=== PATIENT | female | born 1980 | race Caucasian/White ===

== ENCOUNTER 2019-08-02 00:19 | Inpatient (IN) ==
[2019-08-02] MEDS ORDERED: DEXTROSE 5%-LACTATED RINGERS 1,000 ML IV PRN (00:41)
[2019-08-02] MEDS ORDERED: ONDANSETRON 4 MG TAB.RAPDIS PO PRN (00:41)
[2019-08-02] MEDS ORDERED: RINGER'S SOLUTION,LACTATED 1,000 ML IV ONE (00:41)
[2019-08-02] MEDS ORDERED: MISOPROSTOL 100 MCG TABLET VG PRN (00:41)
[2019-08-02] MEDS ORDERED: OXYTOCIN/DEXTROSE 5%-WATER 30 UNITS/500 ML BAG IV ONE ×2 (00:41→16:21)
[2019-08-02 01:38] LABS: Cocaine Ur Negative (NEGATIVE); Urine Barbiturate Negative (NEGATIVE); Urine Benzodiazepines Negative (NEGATIVE); Urine Opiates Negative (NEGATIVE); Urine PCP Negative (NEGATIVE); Urine THC Negative (NEGATIVE)
--- NOTE | 2019-08-02 09:42 | HP ---
Chief Complaint - Chief Complaint Date of Service: 08/02/19 Time of Service: 08:50 Chief Complaint: Medical induction of labor History of Present Illness: 38 yo at 39 2/7 weeks admitted to L&D for induction of labor due to advanced maternal age. This complicated by AMA and anemia. 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 Spontaneous Onset Date: Unknown Surgical History: Surgical History (Last Reviewed 08/02/19 @ 09:39 by Kwesi Erickson DO) H/O wisdom tooth extraction Onset Date: ~03/2019 Family History: Family History (Last Reviewed 08/02/19 @ 09:39 by Kwesi Erickson DO) Mother Fibrocystic breast disease Father Diabetes Social History: (Last Reviewed 08/02/19 @ 09:39 by Kwesi Erickson DO) Social History: adopted: No fci: No Marital status: household members: spouse, children number of children: 4 current occupational status: other current occupational exposures/hazards: No Highest education level completed: Bachelor's degree Sexually Active: Yes Service: No Tobacco: Smoking Status: Never smoker Alcohol: alcohol intake: never Substance Use: substance use type: does not use Dietary Habits: caffeine: Yes Type: coffee Exercise: frequency: does not exercise Heena/Mormonism: agree to transfusion: Yes Review Of Systems (GEN) - Review of Systems Generalized/Overall Review: Present: No Symptoms Reported EENTM: Present: No Symptoms Reported Respiratory: Present: No Symptoms Reported Cardiac: Present: No Symptoms Reported Abdominal: Present: No Symptoms Reported Genitourinary: Present: No Symptoms Reported Musculoskeletal: Present: No Symptoms Reported Neurological: Present: No Symptoms Reported Skin: Present: No Symptoms Reported Endocrine: Present: No Symptoms Reported Allergies/Adverse Reactions: Allergies Allergy/AdvReac Type Severity Reaction Status Date / Time No Known Allergies Allergy Verified 08/02/19 00:40 Home Medications: HOME MEDICATIONS ferrous sulfate 325 mg (65 mg iron) tablet,delayed release 325 mg PO DAILY #30 tab 05/11/19 [Last Taken 08/01/19 12:00] ascorbic acid (vitamin C) 500 mg tablet 500 mg PO DAILY 07/05/19 [Last Taken 08/01/19 12:00] Exam - Exam Vital Signs: Vital Signs - Last Taken Temp 36.7 C 08/02/19 00:41 Pulse 95 08/02/19 00:41 Resp 20 08/02/19 00:41 BP 123/58 08/02/19 00:41 Pulse Ox 98 08/02/19 00:41 Constitutional: Present: Alert, Oriented x3, Cooperative ENT Exam: Present: hearing grossly normal Breasts: Present: Exam deferred Respiratory: Present: lungs clear, no respiratory distress Cardiovascular/Chest: Present: regular rate, rhythm, no edema Abdomen: Present: soft, nontender, no rebound tenderness, other - Gravid /Rectal: Present: Other - Cervix 1/50/-2 Extremity: Present: no pedal edema, no calf tenderness Skin Exam: Present: normal color, warm/dry, no cyanosis Lymphatic: Present: no adenopathy Neurologic: Present: alert, normal mood/affect, oriented x 3 Appearance: Present: appropriate appearance, appropriate insight Eye contact: Present: cooperative, good eye contact Thoughts: Present: normal thought pattern Diagnostic Studies: Laboratory Results Urine Opiates Screen Negative (NEGATIVE) 08/02/19 00:41 Barbiturate Screen Negative (NEGATIVE) 08/02/19 00:41 Ur Phencyclidine Scrn Negative (NEGATIVE) 08/02/19 00:41 Urine Amphetamine Negative (NEGATIVE) 08/02/19 00:41 U Benzodiazepines Scrn Negative (NEGATIVE) 08/02/19 00:41 Urine Cocaine Screen Negative (NEGATIVE) 08/02/19 00:41 Urine Marijuana (THC) Negative (NEGATIVE) 08/02/19 00:41 Assessment/Plan - Assessment/Plan (1) Advanced maternal age affecting , antepartum Assessment: Admit for induction of labor. Epidural PRN. Problem: Chronic (2) Anemia Problem: Acute Qualifiers: Anemia type: iron deficiency Iron deficiency anemia type: inadequate dietary iron intake Qualified Code(s): D50.8 - Other iron deficiency anemias
--- NOTE | 2019-08-02 12:38 | PN ---
Progess Note - Interim Date: 08/02/19 Time: 12:37 Narrative: 08/02/19 12:37 Patient rating her contractions 5 out of 10 Vital signs stable. Pitocin at 9 mu/min. FHT: 150 baseline, reassuring contractions q 2-3 min Cervix: 4/80/-2, AROM-clear Impression: Intrauterine at 39-2/7 weeks induction of labor for advanced maternal age. Plan: Continue present plan
[2019-08-02] MEDS ORDERED: BUPIVACAINE HCL/0.9 % NACL/PF 250 ML EP PRN (14:44)
[2019-08-02] MEDS ORDERED: ONDANSETRON HCL/PF 2 MG/ML VIAL IV PRN (14:44)
[2019-08-02] MEDS ORDERED: NALOXONE HCL 1 MG/1 ML SYRG IV PRN (14:44)
[2019-08-02] MEDS ORDERED: fentaNYL CITRATE/PF 50 MCG/ML AMPUL IT SCH (14:45)
[2019-08-02] MEDS ORDERED: LIDOCAINE HCL 50 ML VIAL ONE (15:24)
[2019-08-02] MEDS ORDERED: LIDOCAINE HCL 50 ML VIAL IJ ONE (15:26)
[2019-08-02] MEDS ORDERED: BISACODYL 10 MG SUPP.RECT RC PRN (16:21)
[2019-08-02] MEDS ORDERED: ACETAMINOPHEN 325 MG TABLET PO PRN (16:21)
[2019-08-02] MEDS ORDERED: SENNOSIDES 8.6 MG TABLET PO PRN (16:21)
[2019-08-02] MEDS ORDERED: oxyCODONE HCL/ACETAMINOPHEN 1 TAB TABLET PO PRN (16:21)
[2019-08-02] MEDS ORDERED: BENZOCAINE/MENTHOL 81 SPRAY CAN TP PRN (16:21)
[2019-08-02] MEDS ORDERED: GLYCERIN/WITCH HAZEL LEAF 40 APPL BOX TP PRN (16:21)
[2019-08-02] MEDS ORDERED: HYDROCORTISONE 30 APPL TUBE TP PRN (16:21)
--- NOTE | 2019-08-02 16:26 | OR ---
Operative Report - Dictated Report Narrative: Spontaneous vaginal delivery of viable male born at 1518 on 08/02/2018 with Apgars 8 and 9, weighing 3210 g in MARIA LUISA position with cord prolapse after delivery of head. Cord clamping delayed approximately 1 minute Placenta delivered complete, intact, with three vessel cord Estimated blood loss: 250 mL due to uterine atony which responded to uterine evacuation, uterine massage, Pitocin 30 milliunits/min IV, and straight cath of bladder removing approximately 500 mL of urine. Anesthesia: Local 1% lidocaine for repair of perineal laceration. Lacerations: First-degree perineal laceration (3 cm) repaired with 3-0 Vicryl Rapide History for History for Definition: * The number of deliveries resulting in a live the patient experienced prior to current hospitalization * The previous delivery of live twins or any live multiple gestation is considered one live event. *If primagravida or nulliparous is documented select zero for the number of previous live births. Live Events: Live Events: 4
[2019-08-02] MEDS: IBUPROFEN 800 MG TABLET PO PRN ×2 (16:36→22:39)
[2019-08-02] MEDS ORDERED: RHO(D) IMMUNE GLOBULIN 1,500 UNIT SYRINGE IM ONE (18:30)
[2019-08-02] MEDS: DOCUSATE SODIUM 100 MG CAPSULE PO SCH (22:39)
[2019-08-03] MEDS: DOCUSATE SODIUM 100 MG CAPSULE PO SCH ×2 (08:57→21:06)
--- NOTE | 2019-08-03 13:30 | PN ---
Subjective - Date and Time Seen Date: 08/03/19 Time: 13:26 Objective - Vitals Vitals: Last Vital Signs Temp 36.5 C 08/03/19 06:45 Pulse 85 08/03/19 06:45 Resp 18 08/03/19 06:45 BP 113/58 08/03/19 06:45 Pulse Ox 98 08/03/19 06:45 Patient denies complaints. Breast-feeding well. Lochia wnl abdomen - soft, nontender Uterus -firm, at umbilicus - U+2 no calf tenderness Impression: day #1 - s/p spontaneous vaginal delivery. bleeding slightly increased above normal Plan: Continue routine care. If bleeding persists we will add Methergine and Cytotec. Assessment/Plan - Problems/Diagnosis (1) Advanced maternal age affecting , antepartum Problem: Chronic (2) Anemia Problem: Acute Qualifiers: Anemia type: iron deficiency Iron deficiency anemia type: inadequate dietary iron intake Qualified Code(s): D50.8 - Other iron deficiency anemias
[2019-08-03] MEDS: IBUPROFEN 800 MG TABLET PO PRN ×2 (13:33→21:06)
[2019-08-04] MEDS: DOCUSATE SODIUM 100 MG CAPSULE PO SCH (09:42)
[2019-08-04] MEDS ORDERED: MAGNESIUM HYDROXIDE 30 ML UDC TP PRN (09:48)
[2019-08-04 10:29] VITALS: BP 125/59
--- NOTE | 2019-08-04 10:57 | PN ---
Subjective - Date and Time Seen Date: 08/04/19 Time: 10:56 Objective - Vitals Vitals: Last Vital Signs Temp 37.0 C 08/04/19 09:30 Pulse 95 08/04/19 09:30 Resp 20 08/04/19 09:30 BP 125/59 08/04/19 09:30 Pulse Ox 98 08/04/19 09:30 Patient denies complaints. Lochia wnl abdomen - soft, nontender Uterus -firm, at umbilicus - 2 no calf tenderness Impression: day #2 - s/p spontaneous vaginal delivery. Plan: Routine discharge instructions Assessment/Plan - Problems/Diagnosis (1) Advanced maternal age affecting , antepartum Problem: Chronic (2) Anemia Problem: Acute Qualifiers: Anemia type: iron deficiency Iron deficiency anemia type: inadequate dietary iron intake Qualified Code(s): D50.8 - Other iron deficiency anemias
== END 2019-08-04 12:15 | disposition home or self-care (01) | DRG 806 ==
LOC: OB 00:19
PROVIDERS: ADMIT Obstetrics & Gynecology; ATTEND Obstetrics & Gynecology
CPT/HCPCS: 59025; 80307; 85460; J2790